=== PATIENT | female | born 1955 | race Caucasian/White ===

== ENCOUNTER 2017-07-08 16:40 | Emergency (ER) | payer BC ==
[2017-07-08] MEDS ORDERED: Sodium Chloride 0.9% 1,000 ML IV ONE ×2 (16:52→19:10)
[2017-07-08] MEDS ORDERED: fentaNYL 100 MCG/2 ML SDV IVPUSH ONE (16:53)
[2017-07-08 17:41] LABS: CHLORIDE,CL 103 mmol/L (98-107); SODIUM,NA 138 mmol/L (136-145)
[2017-07-08] MEDS ORDERED: Ondansetron 4 MG/2 ML SDV IVPUSH ONE (17:42)
[2017-07-08] MEDS ORDERED: Sodium Chloride 0.9% 100 ML IV ONE (18:15)
[2017-07-08] MEDS ORDERED: Iopamidol 612 MG/ML 100 ML Bottle IVPUSH ONE (18:15)
--- NOTE | 2017-07-08 18:29 | EDM.PDOC ---
ED HPI GENERAL MEDICAL PROBLEM - General Chief Complaint: Trauma Stated Complaint: left anterior chest pain, left hip pain, anterograde amnesia Time Seen by Provider: 07/08/17 16:40 Source of Information: Reports: Patient, EMS History Limitations: Reports: Altered Mental Status - History of Present Illness INITIAL COMMENTS - FREE TEXT/NARRATIVE: Pt. fell approx. 12-15 feet. while up scraping paint on a ladder. The fall was unwitnessed. Bystanders relate that the pt. was confused and repeating herself on initial examination, as did EMS. Pt. denied any head or neck pain. She does not remember the fall and is unable to recall how she landed on the ground. Pt. complained of L anterior chest pain and pain to her left hip/buttock area and denies any abdominal pain or extremity discomfort. 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: Cervical Collar, IV/IO, Spinal Immobilization - Related Data Allergies Allergy/AdvReac Type Severity Reaction Status Date / Time Penicillins Allergy Other Verified 07/08/17 16:49 Home Meds: Home Meds ALPRAZolam [Xanax] 0 mg PO QID PRN 07/08/17 [History] Escitalopram Oxalate [Escitalopram Oxalate] 20 mg PO DAILY 07/08/17 [History] Lisinopril [Lisinopril] 5 mg pe PO DAILY 07/08/17 [History] Review of Systems - Review of Systems Review Of Systems: See Below Constitutional: Reports: No Symptoms Eyes: Reports: No Symptoms Ears: Reports: No Symptoms Nose: Reports: No Symptoms Mouth/Throat: Reports: No Symptoms Respiratory: Reports: Other (anterior chest pain, worse with breathing) Cardiovascular: Reports: No Symptoms GI/Abdominal: Reports: No Symptoms Genitourinary: Reports: No Symptoms Musculoskeletal: Reports: Other (pain to left buttock/acetabulum area) Skin: Reports: No Symptoms Neurological: Reports: No Symptoms Psychiatric: Reports: No Symptoms ED EXAM, GENERAL - Physical Exam Exam: See Below Exam Limited By: Other (anterograde amnesia) General Appearance: Alert, No Apparent Distress Eye Exam: Bilateral Eye: EOMI, Normal Fundi, Normal Inspection Ears: Normal External Exam, Normal Canal, Hearing Grossly Normal, Normal TMs Nose: Normal Inspection, Normal Mucosa, No Blood Throat/Mouth: Normal Inspection, Normal Lips, Normal Teeth, Normal Gums Head: Atraumatic, Normocephalic Neck: Normal Inspection, Supple, Non-Tender, Full Range of Motion Respiratory/Chest: No Respiratory Distress, Lungs Clear, Normal Breath Sounds, No Accessory Muscle Use, Other (anterior left chest pain. no crepitus.) Cardiovascular: Normal Peripheral Pulses, Regular Rate, Rhythm, No Edema, No JVD GI/Abdominal: Normal Bowel Sounds, Soft, Non-Tender, No Organomegaly (Female) Exam: Normal External Exam, Other (no gross vaginal bleeding) Rectal (Female) Exam: Normal Exam Back Exam: Normal Inspection, Full Range of Motion, Other (pain to L acetabulum area) Extremities: Normal Inspection, Normal Range of Motion, Non-Tender, Normal Capillary Refill, Other (superficial ecchymosis and abrasion to L thigh) Neurological: Alert, Oriented, CN II-XII Intact, Normal Cognition, Normal Reflexes, Confused, Disoriented Psychiatric: Normal Affect, Normal Mood Skin Exam: Warm, Dry, Intact Lymphatic: No Adenopathy Course - Orders/Labs/Meds Orders: Active Orders 24 hr Category Date Time Status EKG Documentation Completion [RC] STAT Care 07/08/17 16:50 Ordered Cervical Spine wo Cont [CT] Stat Exams 07/08/17 16:52 Taken Chest 1V Frontal [CR] Stat Exams 07/08/17 16:50 Ordered Chest Abdomen Pelvis w Cont [CT] Stat Exams 07/08/17 16:51 Taken Head wo Cont [CT] Routine Exams 07/08/17 17:00 Taken UA W/MICROSCOPIC [URIN] Stat Lab 07/08/17 16:50 Uncollected Sodium Chloride 0.9% [Normal Saline] 1,000 ml Med 07/08/17 19:10 Active IV ONETIME Medication Orders Sodium Chloride (Normal Saline) 1,000 mls @ 999 mls/hr IV ONETIME ONE Stop: 07/08/17 20:10 Labs: Laboratory Tests 07/08/17 07/08/17 07/08/17 Range/Units 17:00 17:00 17:00 WBC 9.5 (4.0-10.0) x10^3/uL RBC 3.68 L (4.00-5.50) x10^6/uL Hgb 11.3 L (12.0-16.0) g/dL Hct 34.5 (33.0-47.0) % MCV 93.8 H (78.0-93.0) fL MCH 30.7 (26.0-32.0) pg MCHC 32.8 (32.0-36.0) g/dL RDW Coeff of Devin 12.6 (10.0-15.0) % Plt Count 257 (130-400) x10^3/uL Add Manual Diff Yes Neutrophils % (Manual) 71 (50-80) % Band Neutrophils % 5 (0-6) % Lymphocytes % (Manual) 24 L (25-50) % Platelet Estimate Adequate PT 10.2 (9.8-11.8) SEC INR 0.9 L (2.0-3.5) Sodium 138 (136-145) mmol/L Potassium 3.5 (3.5-5.1) mmol/L Chloride 103 (98-107) mmol/L Carbon Dioxide 26 (21-32) mmol/L BUN 20 H (7-18) mg/dL Creatinine 1.4 H (0.55-1.02) mg/dL Est Cr Clr Drug Dosing TNP Estimated GFR (MDRD) 38 Glucose 113 H (74-106) mg/dL Calcium 9.0 (8.5-10.1) mg/dL Corrected Calcium 9.16 (8.5-10.1) mg/dL Total Bilirubin 0.3 (0.2-1.0) mg/dL AST 73 H (15-37) U/L ALT 64 H (14-59) U/L Alkaline Phosphatase 57 (46-116) U/L Total Protein 6.7 (6.4-8.2) g/dL Albumin 3.8 (3.4-5.0) g/dL Globulin 2.9 Albumin/Globulin Ratio 1.31 Meds: Medications Generic Name Dose Route Start Last Admin Trade Name Freq PRN Reason Stop Dose Admin Sodium Chloride 1,000 mls @ 999 mls/hr 07/08/17 19:10 Normal Saline IV 07/08/17 20:10 ONETIME ONE Discontinued Medications Generic Name Dose Route Start Last Admin Trade Name Freq PRN Reason Stop Dose Admin Fentanyl 50 mcg 07/08/17 16:53 Sublimaze IVPUSH 07/08/17 16:54 ONETIME ONE Sodium Chloride 1,000 mls @ 1,000 mls/hr 07/08/17 16:52 Normal Saline IV 07/08/17 17:51 .BOLUS ONE Sodium Chloride 100 mls @ 3 mls/sec 07/08/17 18:15 07/08/17 18:18 Normal Saline IV 07/08/17 18:16 3 mls/sec ONETIME ONE Administration Iopamidol 100 ml 07/08/17 18:15 07/08/17 18:17 Isovue-300 (61%) IVPUSH 07/08/17 18:16 100 ml ONETIME ONE Administration Ondansetron HCl 4 mg 07/08/17 17:42 Zofran IVPUSH 07/08/17 17:43 ONETIME ONE - Radiology Interpretation Free Text/Narrative:: CT brain and cervical spine are negative 4 slightly displaced rib fractures with small pneumothorax L sacrum and pubic rami fractures L acetabulum fracture with articular involvement CT Results Date: 07/08/17 CT Results Time: 18:56 - Re-Assessments/Exams Free Text/Narrative Re-Assessment/Exam: 07/08/17 19:22 Pt. was assessed and was maintaining airway. Breathing was adequate. C-collar was kept in place. Pt. was removed from long spine board and placed in vaccu splint. IV access and [place] catheter were placed. Pt. received a total of 1 liter normal saline and IV fentanyl for pain control. Pt. remained stable during her care. Departure - Departure Time of Disposition: 19:10 Disposition: DC/Tfer to Acute Hospital 02 Condition: Serious Clinical Impression: Concussion with brief (less than one hour) loss of consciousness, Pneumothorax , Pelvic fracture - Discharge Information Referrals: Kobe Alexander MD [Primary Care Provider] - Forms: ED Summary Discharge - Problem List & Annotations (1) Pneumothorax SNOMED Code(s): 61129251 Code(s): J93.9 - PNEUMOTHORAX, UNSPECIFIED Status: Acute Current Visit: Yes (2) Pelvic fracture SNOMED Code(s): 02660479 Code(s): S32.9XXA - FRACTURE OF UNSP PARTS OF LUMBOSACRAL SPINE AND PELVIS, INIT Status: Acute Current Visit: Yes (3) Concussion with brief (less than one hour) loss of consciousness SNOMED Code(s): 251633403 Code(s): S06.0X9A - CONCUSSION W LOSS OF CONSCIOUSNESS OF UNSP DURATION, INIT Status: Acute Current Visit: Yes - My Orders Last 24 Hours: My Active Orders 07/08/17 16:50 EKG Documentation Completion [RC] STAT Chest 1V Frontal [CR] Stat UA W/MICROSCOPIC [URIN] Stat 07/08/17 16:51 Chest Abdomen Pelvis w Cont [CT] Stat 07/08/17 16:52 Cervical Spine wo Cont [CT] Stat 07/08/17 17:00 Head wo Cont [CT] Routine - Assessment/Plan Last 24 Hours: My Active Orders 07/08/17 16:50 EKG Documentation Completion [RC] STAT Chest 1V Frontal [CR] Stat UA W/MICROSCOPIC [URIN] Stat 07/08/17 16:51 Chest Abdomen Pelvis w Cont [CT] Stat 07/08/17 16:52 Cervical Spine wo Cont [CT] Stat 07/08/17 17:00 Head wo Cont [CT] Routine Assessment:: Rib fractures (4th thru 6th posteriorly, 1st anteriorly) with small pneumothorax Non-displaced sacral ala fracture L acetabular fracture involving the articular surface L pubic rami fracture with hematoma Closed head injury Plan: Given the extent of the pts. injuries found on CT, decision was made to transfer the pt. to [facility]. Pt. remained hemodynamically stable during her stay in ER and was not experiencing any significant dyspnea or increased work of breathing during her stay. Pnuemothorax was quite small. Decision was made not to place chest tube due to the small size and lack of respiratory disress. Pt. was transferred via [facility] ground ambulance. Pt. was a code level 1.
[2017-07-08] MEDS ORDERED: fentaNYL 100 MCG/2 ML SDV ONE (19:00)
== END 2017-07-08 19:42 | disposition short-term general hospital (02) ==
LOC: VM.ED 16:40
DX: S06.0X1A Concussion with loss of consciousness of 30 minutes or less, initial encounter (principal); S27.0XXA Traumatic pneumothorax, initial encounter; S32.502A Unspecified fracture of left pubis, initial encounter for closed fracture; S32.402A Unspecified fracture of left acetabulum, initial encounter for closed fracture; S32.19XA Other fracture of sacrum, initial encounter for closed fracture; Z88.0 Allergy status to penicillin; Z79.899 Other long term (current) drug therapy; W11.XXXA Fall on and from ladder, initial encounter; Y93.E9 Activity, other interior property and clothing maintenance
CPT/HCPCS: 36415; 51702; 70450; 71010; 71260; 72125; 74177; 80053; 81001; 85025; 85610; 96361; 96374; 96375; 96376; 99291; 99292; J2405; J3010; J7030; J7050; Q9967; 93005

== ENCOUNTER 2018-10-16 06:26 | Day surgery (SDC) | payer BC ==
[~2018-10-16 06:26] MED LIST: Lactated Ringers 1,000 ML IV SCH
[2018-10-16] MEDS ORDERED: fentaNYL 100 MCG/2 ML SDV ONE (07:58)
[2018-10-16] MEDS ORDERED: Propofol 200 MG/20 ML SDV ONE (07:58)
--- NOTE | 2018-10-16 10:13 | OR ---
PRE-OPERATIVE DIAGNOSIS: Colon cancer screening. Last colonoscopy was normal 10 years ago. There is a positive family history of polyps in both parents. POST-OPERATIVE DIAGNOSIS: Normal colon. PROCEDURE: Colonoscopy. ANESTHESIA: Monitored anesthesia care. BOWEL PREP: Good. Mindi is a 62-year-old female, who was brought to the endoscopy suite after discussing risks and benefits of the procedure. Informed consent was obtained for conscious sedation and colonoscopy with or without biopsy and/or polypectomy. We also discussed possibility of missed lesions. Pre-procedure exam was unremarkable. IV, oxygen, and monitors were placed. The patient was placed in the left lateral decubitus position. Sedation was administered and a digital rectal exam was performed and unremarkable. Colonoscope was passed into the rectum and slowly advanced all the way to the cecum. Cecum was viewed and photographed. The colonoscope was slowly withdrawn and the mucosa was closed observed in a direct circumferential manner. The ascending colon was unremarkable. The transverse colon was unremarkable. The descending colon was unremarkable. The sigmoid colon was unremarkable. Retroflexion was performed and rectal mucosa unremarkable. Scope was removed. The patient tolerated the procedure well. The patient was monitored until that baseline status. Discharge instructions were reviewed and the patient was discharged in good condition. COMPLICATIONS: None. TOTAL TIME: 17 minutes. ESTIMATED BLOOD LOSS: None. RECOMMENDATIONS/FOLLOW-UP: With the patient's normal colon today, she is good for the next 10 years prior to repeating colonoscopy barring any change in personal symptoms or family history. I would like to kindly thank, Kobe Alexander, for this referral. DMB: 10/16/2018 08:38:24 MODL: 10/16/2018 10:01:32 /[id number]
== END 2018-10-16 09:30 | disposition home or self-care (01) ==
LOC: VM.SDS 06:26
PROVIDERS: ATTEND Family Medicine
DX: Z12.11 Encounter for screening for malignant neoplasm of colon (principal); I12.9 Hypertensive chronic kidney disease with stage 1 through stage 4 chronic kidney disease, or unspecified chronic kidney disease; N18.9 Chronic kidney disease, unspecified; M81.0 Age-related osteoporosis without current pathological fracture; F41.8 Other specified anxiety disorders; D64.9 Anemia, unspecified; Z87.891 Personal history of nicotine dependence; Z79.899 Other long term (current) drug therapy; Z83.71 Family history of colonic polyps; Z88.0 Allergy status to penicillin
CPT/HCPCS: J2704; J3010; J7120

== ENCOUNTER 2024-02-10 08:47 | Emergency (ER) | payer MEDICARE ==
[2024-02-10 09:31] LABS: BASOPHILS ABSOLUTE AUTO 0.1 x10^3/uL (0.0-0.2); BASOPHILS PERCENT AUTO 1.1 % (0.2-1.2); EOSINOPHILS ABSOLUTE AUTO 0.1 x10^3/uL (0.0-0.5); EOSINOPHILS PERCENT AUTO 2.7 % (0.0-4.0); HEMATOCRIT 44.8 % (33.0-47.0); LYMPHOCYTES ABSOLUTE AUTO 1.2 x10^3/uL (1.0-4.8); LYMPHOCYTES PERCENT AUTO 27.5 % (25.0-50.0); MEAN CORPUSCULAR HEMOGLOBIN 31.2 pg (26.0-32.0); MEAN CORPUSCULAR HGB CONC 33.5 g/dL (32.0-36.0); MEAN CORPUSCULAR VOLUME 93.1 fL (78.0-93.0); MONOCYTES ABSOLUTE AUTO 0.3 x10^3/uL (0.0-0.8); MONOCYTES PERCENT AUTO 6.3 % (2.0-11.0); NEUTROPHILS ABSOLUTE AUTO 2.8 x10^3/uL (1.8-7.7); NEUTROPHILS PERCENT AUTO 62.4 % (50.0-80.0); PLATELET COUNT,PLT 303 x10^3/uL (130-400); RED BLOOD CELL COUNT 4.81 x10^6/uL (4.00-5.50); WHITE BLOOD CELL COUNT,WBC 4.4 x10^3/uL (4.0-10.0)
[2024-02-10] MEDS: Ondansetron 4 MG/2 ML SDV IVPUSH ONE (09:50)
[2024-02-10] MEDS: Sodium Chloride 0.9% 1,000 ML IV ONE (09:50)
[2024-02-10 09:52] LABS: ALANINE AMINOTRANSFERASE,ALT 234 U/L (14-59); ALBUMIN 4.2 g/dL (3.4-5.0); ALKALINE PHOSPHATASE 105 U/L (46-116); ASPARTATE AMNIOTRANSFERASE,AST 170 U/L (15-37); BILIRUBIN TOTAL 1.5 mg/dL (0.2-1.0); BLOOD UREA NITROGEN,BUN 14 mg/dL (7-18); CALCIUM 9.7 mg/dL (8.5-10.1); CARBON DIOXIDE,CO2 27 mmol/L (21-32); CREATININE 1.1 mg/dL (0.55-1.02); GLUCOSE RANDOM 103 mg/dL (70-99); PROTEIN TOTAL,TP 7.7 g/dL (6.4-8.2)
[2024-02-10 09:54] LABS: POTASSIUM,K 4.1 mmol/L (3.5-5.1); SODIUM,NA 138 mmol/L (136-145)
[2024-02-10 09:57] LABS: CHLORIDE,CL 98 mmol/L (98-107)
[2024-02-10 10:05] LABS: ANION GAP 17.1 mmol/L (5-15); ESTIMATED GFR 55 mL/min (>=60); ETHANOL BLOOD MEDICAL < 3 mg/dL (0-3)
== END 2024-02-10 11:08 | disposition home or self-care (01) ==
LOC: VM.ED 08:47
DX: R11.0 Nausea (principal); F10.10 Alcohol abuse, uncomplicated; I10 Essential (primary) hypertension; Z88.0 Allergy status to penicillin; Z79.899 Other long term (current) drug therapy
CPT/HCPCS: 80053; 80307; 85025; 96361; 96374; 99283; 99284-25; J2405; J7030

== ENCOUNTER 2024-06-05 10:20 | Emergency (ER) | payer BC, MEDICARE | END 2024-06-05 11:48 | disposition home or self-care (01) | LOC: VM.ED 10:20 | DX: F10.20 Alcohol dependence, uncomplicated (principal); I10 Essential (primary) hypertension; Z88.0 Allergy status to penicillin; Z79.899 Other long term (current) drug therapy; Z87.891 Personal history of nicotine dependence; Y90.9 Presence of alcohol in blood, level not specified | CPT/HCPCS: 36415; 80307; 99283; 99284 ==

== ENCOUNTER 2024-07-16 10:43 | Emergency (ER) | payer MEDICARE | END 2024-07-16 12:25 | disposition home or self-care (01) | LOC: VM.ED 10:43 | DX: R07.89 Other chest pain (principal); I10 Essential (primary) hypertension; Z79.899 Other long term (current) drug therapy; Z88.0 Allergy status to penicillin | CPT/HCPCS: 71101-LT; 99283 ==

== ENCOUNTER 2024-08-04 10:01 | Emergency (ER) | payer MEDICARE ==
[2024-08-04] MEDS ORDERED: Sodium Chloride 0.9% 10 ML Syringe FLUSH PRN (10:23)
[2024-08-04 10:35] LABS: BASOPHILS PERCENT AUTO 0.7 % (0.2-1.2); EOSINOPHILS ABSOLUTE AUTO 0.1 x10^3/uL (0.0-0.5); EOSINOPHILS PERCENT AUTO 0.8 % (0.0-4.0); HEMATOCRIT 40.5 % (33.0-47.0); HEMOGLOBIN 13.9 g/dL (12.0-16.0); IMMATURE GRAN ABSOLUTE AUTO 0.01 x10^3/uL (0.00-0.07); LYMPHOCYTES ABSOLUTE AUTO 0.8 x10^3/uL (1.0-4.8); LYMPHOCYTES PERCENT AUTO 12.9 % (25.0-50.0); MEAN CORPUSCULAR HEMOGLOBIN 32.7 pg (26.0-32.0); MEAN CORPUSCULAR HGB CONC 34.3 g/dL (32.0-36.0); MEAN CORPUSCULAR VOLUME 95.3 fL (78.0-93.0); MONOCYTES ABSOLUTE AUTO 0.3 x10^3/uL (0.0-0.8); MONOCYTES PERCENT AUTO 5.5 % (2.0-11.0); NEUTROPHILS ABSOLUTE AUTO 4.8 x10^3/uL (1.8-7.7); NEUTROPHILS PERCENT AUTO 79.9 % (50.0-80.0); PLATELET COUNT,PLT 301 x10^3/uL (130-400); RED BLOOD CELL COUNT 4.25 x10^6/uL (4.00-5.50)
[2024-08-04] MEDS: Ondansetron 4 MG/2 ML SDV IVPUSH ONE (10:37)
[2024-08-04] MEDS: Sodium Chloride 0.9% 1,000 ML IV ONE (10:37)
[2024-08-04 10:56] LABS: A/G RATIO 1.12; ALANINE AMINOTRANSFERASE,ALT 65 U/L (14-59); ALBUMIN 3.7 g/dL (3.4-5.0); ALKALINE PHOSPHATASE 93 U/L (46-116); ASPARTATE AMNIOTRANSFERASE,AST 80 U/L (15-37); BILIRUBIN TOTAL 1.9 mg/dL (0.2-1.0); BLOOD UREA NITROGEN,BUN 17 mg/dL (7-18); CALCIUM 8.8 mg/dL (8.5-10.1); CARBON DIOXIDE,CO2 27 mmol/L (21-32); CHLORIDE,CL 95 mmol/L (98-107); CREATININE 1.1 mg/dL (0.55-1.02); EST CRCL DRUG DOSING (CG) 42.27 mL/min; ESTIMATED GFR 55 mL/min (>=60); ETHANOL BLOOD MEDICAL < 3 mg/dL (0-3); GLUCOSE RANDOM 107 mg/dL (70-99); SODIUM,NA 138 mmol/L (136-145)
== END 2024-08-04 11:22 | disposition home or self-care (01) ==
LOC: VM.ED 10:01
DX: F10.20 Alcohol dependence, uncomplicated (principal); R74.01 Elevation of levels of liver transaminase levels; I10 Essential (primary) hypertension; Z79.899 Other long term (current) drug therapy; Z88.0 Allergy status to penicillin
CPT/HCPCS: 36415; 80053; 80307; 85025; 96361; 96374; 99284; 99284-25; J2405; J7030

== ENCOUNTER 2024-11-25 09:48 | Observation (INO) | payer MEDICARE ==
[2024-11-25] MEDS ORDERED: Sodium Chloride 0.9% 10 ML Syringe FLUSH PRN (10:57)
[2024-11-25] MEDS: LORazepam 2 MG/ML SDV IVPUSH ONE ×2 (11:15→14:05)
[2024-11-25] MEDS: Ondansetron 4 MG/2 ML SDV IVPUSH ONE ×2 (11:15→14:05)
[2024-11-25] MEDS: Lactated Ringers 1,000 ML IV ONE (11:15)
[2024-11-25 11:22] LABS: BASOPHILS PERCENT AUTO 0.1 % (0.2-1.2); HEMATOCRIT 47.1 % (33.0-47.0); IMMATURE GRAN ABSOLUTE AUTO 0.03 x10^3/uL (0.00-0.07); LYMPHOCYTES ABSOLUTE AUTO 0.8 x10^3/uL (1.0-4.8); LYMPHOCYTES PERCENT AUTO 6.5 % (25.0-50.0); MEAN CORPUSCULAR HEMOGLOBIN 31.6 pg (26.0-32.0); MEAN CORPUSCULAR VOLUME 93.1 fL (78.0-93.0); MONOCYTES ABSOLUTE AUTO 0.6 x10^3/uL (0.0-0.8); MONOCYTES PERCENT AUTO 4.4 % (2.0-11.0); NEUTROPHILS ABSOLUTE AUTO 11.4 x10^3/uL (1.8-7.7); NEUTROPHILS PERCENT AUTO 88.8 % (50.0-80.0); PLATELET COUNT,PLT 250 x10^3/uL (130-400); RED BLOOD CELL COUNT 5.06 x10^6/uL (4.00-5.50); WHITE BLOOD CELL COUNT,WBC 12.8 x10^3/uL (4.0-10.0)
[2024-11-25 11:37] LABS: A/G RATIO 1.03; ALANINE AMINOTRANSFERASE,ALT 214 U/L (14-59); ALBUMIN 3.8 g/dL (3.4-5.0); ALKALINE PHOSPHATASE 94 U/L (46-116); ANION GAP 32.3 mmol/L (5-15); ASPARTATE AMNIOTRANSFERASE,AST 205 U/L (15-37); BILIRUBIN TOTAL 0.7 mg/dL (0.2-1.0); BLOOD UREA NITROGEN,BUN 24 mg/dL (7-18); C-REACTIVE PROTEIN 0.56 mg/dL (<=0.50); CALCIUM 8.8 mg/dL (8.5-10.1); CARBON DIOXIDE,CO2 15 mmol/L (21-32); CHLORIDE,CL 95 mmol/L (98-107); CREATININE 1.6 mg/dL (0.55-1.02); ETHANOL BLOOD MEDICAL 64 mg/dL (0-3); GLUCOSE RANDOM 192 mg/dL (70-99); LIPASE 21 U/L (19-71); POTASSIUM,K 4.3 mmol/L (3.5-5.1); PROTEIN TOTAL,TP 7.5 g/dL (6.4-8.2); SODIUM,NA 138 mmol/L (136-145)
[2024-11-25 11:38] LABS: ESTIMATED GFR 35 mL/min (>=60)
[2024-11-25] MEDS: Iopamidol 612 MG/ML 100 ML Bottle IVPUSH ONE (13:09)
[2024-11-25] MEDS ORDERED: Metoclopramide 10 MG/2 ML SDV IV PRN (15:25)
[2024-11-25] MEDS ORDERED: Prochlorperazine 10 MG/2 ML SDV IV PRN (15:25)
[2024-11-25] MEDS: Metoclopramide 10 MG/2 ML SDV IVPUSH ONE (15:27)
[2024-11-25] MEDS: Promethazine 25 MG/ML SDV IM ONE (15:27)
[2024-11-25 16:13] LABS: APPEARANCE,URINE CLEAR (CLEAR); BILIRUBIN,URINE NEGATIVE (NEGATIVE); COLOR,URINE DARK YELLOW (YELLOW); GLUCOSE,URINE NEGATIVE (NEGATIVE); KETONES,URINE 40 mg/dL (NEGATIVE); LEUKOCYTE ESTERASE,URINE NEGATIVE (NEGATIVE); NITRITE,URINE NEGATIVE (NEGATIVE); OCCULT BLOOD,URINE NEGATIVE (NEGATIVE); PH,URINE 5.5 (5.0-8.0); PROTEIN,URINE 100 mg/dL (NEGATIVE); UROBILINOGEN,URINE 0.2 EU/dL (0.2)
[2024-11-25 16:17] LABS: AMPHETAMINES SCREEN, URINE NEGATIVE (NEGATIVE); BARBITURATE SCREEN,URINE NEGATIVE (NEGATIVE)
[2024-11-25 16:18] LABS: BACTERIA,URINE OCCASIONAL /HPF (NOT SEEN); BENZODIAZEPINES SCREEN,URINE POSITIVE (NEGATIVE); BUPRENORPHINE SCREEN,URINE NEGATIVE (NEGATIVE); COCAINE METABOLITES,URINE NEGATIVE (NEGATIVE); METHADONE SCREEN, URINE NEGATIVE (NEGATIVE); METHAMPHETAMINE SCREEN, URINE NEGATIVE (NEGATIVE); MUCUS,URINE OCCASIONAL /LPF (NOT SEEN); OXYCODONE SCREEN,URINE NEGATIVE (NEGATIVE); PCP SCREEN,URINE NEGATIVE (NEGATIVE); RBC,URINE 0-5 /HPF (NOT SEEN); SQUAMOUS EPITHELIAL CELLS,UR OCCASIONAL /HPF (NOT SEEN); THC SCREEN,URINE 50 NG/ML NEGATIVE (NEGATIVE); WBC,URINE 0-5 /HPF (NOT SEEN)
[2024-11-25] MEDS: Lactated Ringers 1,000 ML IV SCH (17:24)
[2024-11-25] MEDS ORDERED: Scopalamine 1mg/3day Transdermal Patch TRDERM PRN (17:49)
[2024-11-25] MEDS: LORazepam 2 MG/ML SDV IVPUSH PRN (18:27)
[2024-11-25] MEDS: Pantoprazole 40 MG Vial IVPUSH SCH (18:28)
[2024-11-26] MEDS: Ondansetron 4 MG/2 ML SDV IV PRN (05:09)
[2024-11-26 07:00] LABS: BASOPHILS PERCENT AUTO 0.3 % (0.2-1.2); EOSINOPHILS ABSOLUTE AUTO 0.1 x10^3/uL (0.0-0.5); EOSINOPHILS PERCENT AUTO 1.1 % (0.0-4.0); HEMATOCRIT 33.1 % (33.0-47.0); HEMOGLOBIN 11.3 g/dL (12.0-16.0); IMMATURE GRAN ABSOLUTE AUTO 0.01 x10^3/uL (0.00-0.07); LYMPHOCYTES PERCENT AUTO 31.7 % (25.0-50.0); MEAN CORPUSCULAR HEMOGLOBIN 31.9 pg (26.0-32.0); MEAN CORPUSCULAR HGB CONC 34.1 g/dL (32.0-36.0); MEAN CORPUSCULAR VOLUME 93.5 fL (78.0-93.0); MONOCYTES ABSOLUTE AUTO 0.6 x10^3/uL (0.0-0.8); MONOCYTES PERCENT AUTO 8.7 % (2.0-11.0); NEUTROPHILS ABSOLUTE AUTO 3.7 x10^3/uL (1.8-7.7); PLATELET COUNT,PLT 156 x10^3/uL (130-400); RED BLOOD CELL COUNT 3.54 x10^6/uL (4.00-5.50); WHITE BLOOD CELL COUNT,WBC 6.4 x10^3/uL (4.0-10.0)
[2024-11-26 07:23] LABS: A/G RATIO 1.12; ALBUMIN 2.9 g/dL (3.4-5.0); CREATININE 1.1 mg/dL (0.55-1.02); EST CRCL DRUG DOSING (CG) 38.71 mL/min; MAGNESIUM 1.9 mg/dL (1.8-2.4); POTASSIUM,K 3.4 mmol/L (3.5-5.1); PROTEIN TOTAL,TP 5.5 g/dL (6.4-8.2)
[2024-11-26 07:26] LABS: ANION GAP 12.4 mmol/L (5-15)
[2024-11-26] MEDS: Calcium Carbonate 750 MG Tab.Chew PO PRN (12:45)
[2024-11-26] MEDS ORDERED: Ondansetron 4 MG Tab.DIS PO PRN (16:00)
== END 2024-11-26 16:13 | disposition home or self-care (01) ==
LOC: VM.ED 09:48 → VM.MS 15:32
PROVIDERS: ADMIT Nurse Practitioner Family; ATTEND Family Medicine
DX: R11.10 Vomiting, unspecified (principal); F10.10 Alcohol abuse, uncomplicated; I10 Essential (primary) hypertension; N17.9 Acute kidney failure, unspecified; N18.2 Chronic kidney disease, stage 2 (mild); E78.5 Hyperlipidemia, unspecified; Z20.822 Contact with and (suspected) exposure to COVID-19; Z79.899 Other long term (current) drug therapy
CPT/HCPCS: 36415; 71046; 74177; 80053; 80305; 80307; 81001; 83690; 83735; 84100; 85025; 86140; 87428; 96361; 96372; 96374; 96375; 96376; 99284; 99285; A9270; J2060; J2405; J2470; J2550; J2765; J7120; Q9967; G0378

== ENCOUNTER 2025-07-01 15:10 | Emergency (ER) | payer MEDICARE ==
[2025-07-01] MEDS: Ondansetron 4 MG/2 ML SDV IVPUSH ONE (15:22)
[2025-07-01] MEDS: Lactated Ringers 1,000 ML IV ONE (15:22)
[2025-07-01 15:25] LABS: BASOPHILS ABSOLUTE AUTO 0.1 x10^3/uL (0.0-0.2); BASOPHILS PERCENT AUTO 1.0 % (0.2-1.2); EOSINOPHILS ABSOLUTE AUTO 0.0 x10^3/uL (0.0-0.5); EOSINOPHILS PERCENT AUTO 0.2 % (0.0-4.0); IMMATURE GRAN ABSOLUTE AUTO 0.08 x10^3/uL (0.00-0.07); IMMATURE GRAN PERCENT AUTO 0.70 % (0.00-0.43); LYMPHOCYTES ABSOLUTE AUTO 2.2 x10^3/uL (1.0-4.8); LYMPHOCYTES PERCENT AUTO 18.3 % (25.0-50.0); MONOCYTES ABSOLUTE AUTO 0.4 x10^3/uL (0.0-0.8); MONOCYTES PERCENT AUTO 3.5 % (2.0-11.0); NEUTROPHILS ABSOLUTE AUTO 9.2 x10^3/uL (1.8-7.7); NEUTROPHILS PERCENT AUTO 76.3 % (50.0-80.0); PLATELET COUNT,PLT 353 x10^3/uL (130-400); RED BLOOD CELL COUNT 4.87 x10^6/uL (4.00-5.50); WHITE BLOOD CELL COUNT,WBC 12.1 x10^3/uL (4.0-10.0)
[2025-07-01 15:47] LABS: A/G RATIO 1.21; ALANINE AMINOTRANSFERASE,ALT 40 U/L (14-59); ASPARTATE AMNIOTRANSFERASE,AST 53 U/L (15-37); BILIRUBIN TOTAL 0.5 mg/dL (0.2-1.0); BLOOD UREA NITROGEN,BUN 24 mg/dL (7-18); CARBON DIOXIDE,CO2 15 mmol/L (21-32); CHLORIDE,CL 101 mmol/L (98-107); CREATININE 1.7 mg/dL (0.55-1.02); ESTIMATED GFR 32 mL/min (>=60); ETHANOL BLOOD MEDICAL 224 mg/dL (0-3); GLUCOSE RANDOM 74 mg/dL (70-99); POTASSIUM,K 3.9 mmol/L (3.5-5.1); PROTEIN TOTAL,TP 7.5 g/dL (6.4-8.2); SODIUM,NA 142 mmol/L (136-145)
[2025-07-01] MEDS: Take Home: Ondansetron 4 MG Tab.DIS, 5 Tab Pack PO ONE (17:12)
== END 2025-07-01 17:12 | disposition home or self-care (01) ==
LOC: VM.ED 15:10
DX: S20.419A Abrasion of unspecified back wall of thorax, initial encounter (principal); F10.129 Alcohol abuse with intoxication, unspecified; R22.0 Localized swelling, mass and lump, head; I10 Essential (primary) hypertension; Z79.899 Other long term (current) drug therapy; Y90.7 Blood alcohol level of 200-239 mg/100 ml; W19.XXXA Unspecified fall, initial encounter; Y92.009 Unspecified place in unspecified non-institutional (private) residence as the place of occurrence of the external cause
CPT/HCPCS: 70450; 71046; 80053; 80307; 85025; 96361; 96374; 96375; 99283; 99285-25; J2405; J2765; J7120; Q0162